=== PATIENT | female | born 1950 | race Caucasian/White ===

== ENCOUNTER 2022-09-05 12:14 | Emergency (ER) | payer MEDICARE, SELFPAY ==
[2022-09-05 12:17] VITALS: BP 162/90; PULSE 57; RESP 18; TEMP 37.7; O2SAT 98; BMI 30.5
--- NOTE | 2022-09-05 12:19 | ED_ITS ---
HPI - General Adult General Chief complaint: Extremity Problem, Nontraumatic Stated complaint: FACIAL PAIN Time Seen by Provider: 09/05/22 12:19 History of Present Illness HPI narrative: patient presents to the emergency department complaining of right facial swelling. Patient states she started having pain and swelling to the right jaw about a month ago. She saw her dentist and was told it was nothing wrong with it. She has been taking Motrin for the pain. She started noticing increased swelling this week saw Dr. Rivreo who started the patient on Augmentin. Patient states today there was more swelling than it was yesterday so she came in to be evaluated. She denies any fever, chills, cough, chest pain, shortness of breath. Denies any sore throat or difficulty swallowing. She denies any throat swelling. She denies any trauma. Related Data Home Medications Medication Instructions Recorded Confirmed amoxicillin 875 mg-potassium 1 tab PO Q12H 09/05/22 09/05/22 clavulanate 125 mg tablet fluoxetine 20 mg capsule 60 mg PO QDAY 09/05/22 09/05/22 lisinopril 40 mg tablet 40 mg PO QDAY 09/05/22 09/05/22 lovastatin 40 mg tablet 40 mg PO QDAY 09/05/22 09/05/22 Previous Rx's Medication Instructions Recorded clindamycin HCl 300 mg capsule 300 mg PO TID 10 days #30 caps 09/05/22 Allergies Allergy/AdvReac Type Severity Reaction Status Date / Time No Known Drug Allergies Allergy Verified 09/05/22 12:17 Review of Systems ROS Status of ROS 10 or more systems reviewed and unremarkable except as noted in history and below Exam Narrative Exam Narrative: Nurses notes and vital signs reviewed and patient is not hypoxic. General: Nontoxic, Well-appearing and in no apparent distress. Skin: Warm, dry, no pallor noted. No Rash Head: Normocephalic, atraumatic. Neck: Supple, non-tender. Eye: Pupils are equal, round and EOMI. No scleral icterus. Ears, Nose, Mouth, and Throat: TM clear, no posterior oropharynx erythema or nasal mucosal hypertrophy, uvula is mid-line Oral mucosa is moist, No trismus, no drooling, there is a 2 x 2 centimeter fullness to the right mandibular angle. There is no erythema, ecchymosis, trauma there is no drainable abscess. There is no tongue elevation. Cardiovascular: Regular Rate and Rhythm without murmur, gallop or rub. Respiratory: No accessory muscle use or respiratory distress. Lungs are clear to auscultation, no wheezing, rales or rhonchi Chest Wall: no tenderness Back: No midline thoracic or lumbar vertebral tenderness. No CVA tenderness Musculoskeletal: normal ROM, no calf or popliteal tenderness, no lower extremity edema/swelling GI: Abdomen is soft, non-distended. Normal bowel sounds. No masses appreciated. No tenderness to palpation. No rebound, guarding, or rigidity noted. Neurological: A&O x4. No cranial nerve dysfunction observed. No truncal ataxia. Moves all extremities. Sensation intact. Psychiatric: Cooperative and interactive. Normal mood and affect. Constitutional Vital Signs - 24 hr 09/05/22 12:17 Temperature 99.8 F H Pulse Rate [Monitor] 57 L Respiratory Rate 18 Blood Pressure [Right Arm] 162/90 H Pulse Oximetry 98 Oxygen Delivery Method Room Air Course Vital Signs Vital signs: Vital Signs Temperature 99.8 F H 09/05/22 12:17 Pulse Rate 57 L 09/05/22 12:17 Respiratory Rate 18 09/05/22 12:17 Blood Pressure 162/90 H 09/05/22 12:17 Pulse Oximetry 98 09/05/22 12:17 Oxygen Delivery Method Room Air 09/05/22 12:17 Temperature 99.8 F H 09/05/22 12:17 Pulse Rate 57 L 09/05/22 12:17 Respiratory Rate 18 09/05/22 12:17 Blood Pressure 162/90 H 09/05/22 12:17 Pulse Oximetry 98 09/05/22 12:17 Oxygen Delivery Method Room Air 09/05/22 12:17 Medical Decision Making MDM Narrative Medical decision making narrative: IV was established. A shunt states she did not want anything stronger than Motrin to take at home for pain. CT of the neck soft tissue was ordered and shows a 2 cm abscess. There is no osteomyelitis. Patient was given clindamycin 900 mg IV. Started on clindamycin 300 mg 3 times a day for 10 days. She is to follow up with primary care doctor and a dentist. At this time the patient is without objective evidence of an acute process requiring hospitalization or inpatient management. The patient has remained hemodynamically stable. No additional indication for emergent studies at this time. I answered all questions. Discussed discharge instructions including standard anticipatory guidance and what should prompt a return to the emergency department, including if they get worse are not getting better or develops any new or concerning symptoms. I've given them specific time frame in which to follow-up, and who to follow-up with. The patient demonstrates understanding. Patient is nontoxic and stable for discharge with outpatient follow-up. This note was created with the assistance of a speech recognition program. Although the intention is to generate documents that actually reflects the content of the visit, no guarantees can be provided that every mistake has been identified and corrected by editing. Lab Data Lab results reviewed: Yes I reviewed the patient's lab results Labs: Lab Results 09/05/22 Range/Units 13:04 WBC 10.2 (4.0-11.0) 10^3/uL RBC 4.52 (4.20-5.40) 10^6/uL Hgb 13.8 (12.0-16.0) g/dL Hct 42.7 (36.0-48.0) % MCV 94.5 (81.0-99.0) fL MCH 30.5 (26.7-34.0) pg MCHC 32.3 (29.9-35.2) g/dL RDW 12.3 (11.0-15.0) % Plt Count 232 (150-450) 10^3/uL MPV 9.5 (9.5-13.5) fL Neut % (Auto) 60.6 (43.0-75.0) % Lymph % (Auto) 25.4 (20.5-60.0) % [place] % (Auto) 12.2 H (1.7-12.0) % Eos % (Auto) 0.9 (0.9-7.0) % Baso % (Auto) 0.4 (0.2-2.0) % Neut # (Auto) 6.2 (1.4-6.5) 10^3/uL Lymph # (Auto) 2.6 (1.2-3.8) 10^3/uL [place] # (Auto) 1.3 H (0.3-0.8) 10^3/uL Eos # (Auto) 0.1 (0.0-0.7) 10^3/uL Baso # (Auto) 0.0 (0.0-0.1) 10^3/uL Abs Immat Gran (auto) 0.05 H (0.00-0.03) 10^3/uL Imm/Tot Granulo (auto) 0.5 (0.0-0.5) % Sodium 139 (136-145) mmol/L Potassium 3.8 (3.5-5.1) mmol/L Chloride 102 (98-107) mmol/L Carbon Dioxide 28.9 (21.0-32.0) mmol/L Anion Gap 11.9 BUN 14.0 (7.0-18.0) mg/dL Creatinine 0.69 (0.55-1.02) mg/dL Est GFR ( Amer) >60 (>=60) Est GFR (Non-Af Amer) >60 (>=60) BUN/Creatinine Ratio 20.3 Glucose 89 (74-106) mg/dL Calcium 9.4 (8.5-10.1) mg/dL Imaging Data CT scan: Radiologist's impression: [facility] [place] [address] Patient Name: ROHAN LUNA MRN: [facility]:[id number] date: 1950 Sex: F Assigned Patient Location: Current Patient Location: Accession/Order Number: [id number] Exam Date: 09/05/2022 13:58 Report Date: 09/05/2022 14:32 At the request of: PATY TUCKER Procedure: CT soft tissue neck w con EXAMINATION: CT soft tissue neck w con HISTORY: swelling r mandible ; acute right facial swelling COMPARISON: No relevant comparison available. TECHNIQUE: Axial, Coronal, and Sagittal CT images created with IV contrast. Dose reduction techniques were achieved by using automated exposure control and/or adjustment of mA and/or kV according to patient size and/or use of iterative reconstruction technique. FINDINGS: NASOPHARYNX: No asymmetry of the fossae of Rosenmuller and torus tubarius. ORAL CAVITY: Encapsulated fluid collection containing small amount of air inferior medial to the right mandible midway between chain and angle of mandible, 2.2 x 2.1 x 1.0 cm. No appreciable cortical destruction of the adjacent mandible. OROPHARYNX: No asymmetry of the facial and lingual tonsils. HYPOPHARYNX: No mass or other visible lesion. LARYNX: No mass or asymmetry of the vocal cords. SINUSES: No significant fluid or mucosal thickening. NECK GLANDS: No visible abnormality of the parotid, submandibular, and thyroid glands. LYMPH NODES: Several slightly prominent level 1 and level 2 lymph nodes on right. VASCULATURE: No suspicious abnormality. BONES: Degenerative changes of cervical spine. OTHER: No additional imaging findings. IMPRESSION: 1. There is a 2.2 cm abscess adjacent the inferior medial margin of the mid right mandible. No adjacent bone destruction. 2. Mild lymphadenopathy. Electronically authenticated by: GAVIN MULLIGAN Date: 09/05/2022 14:32 Discharge Plan Discharge Chief Complaint: Extremity Problem, Nontraumatic Clinical Impression: Cutaneous abscess of face Patient Disposition: Home, Self-Care Time of Disposition Decision: 16:06 Mode of Transportation: Private Vehicle Prescriptions / Home Meds: New clindamycin HCl 300 mg capsule 300 mg PO TID 10 Days Qty: 30 0RF No Action amoxicillin-pot clavulanate 875-125 mg tablet 1 tab PO Q12H fluoxetine 20 mg capsule 60 mg PO QDAY lisinopril 40 mg tablet 40 mg PO QDAY lovastatin 40 mg tablet 40 mg PO QDAY Instructions: Dental Abscess (ED) Stand Alone Forms: Portal Instructions Referrals: ANNABELLA URBANO [Primary Care Provider] - 1 week
--- NOTE | 2022-09-05 12:51 | CT_ITS ---
[address] [address] Patient Name: ROHAN LUNA MRN: [id number] date: 1950 Sex: F Assigned Patient Location: ER Current Patient Location: Accession/Order Number: [id number] Exam Date: 09/05/2022 13:58 Report Date: 09/05/2022 14:32 At the request of: PATY TUCKER Procedure: CT soft tissue neck w con EXAMINATION: CT soft tissue neck w con HISTORY: swelling r mandible ; acute right facial swelling COMPARISON: No relevant comparison available. TECHNIQUE: Axial, Coronal, and Sagittal CT images created with IV contrast. Dose reduction techniques were achieved by using automated exposure control and/or adjustment of mA and/or kV according to patient size and/or use of iterative reconstruction technique. FINDINGS: NASOPHARYNX: No asymmetry of the fossae of Rosenmuller and torus tubarius. ORAL CAVITY: Encapsulated fluid collection containing small amount of air inferior medial to the right mandible midway between chain and angle of mandible, 2.2 x 2.1 x 1.0 cm. No appreciable cortical destruction of the adjacent mandible. OROPHARYNX: No asymmetry of the facial and lingual tonsils. HYPOPHARYNX: No mass or other visible lesion. LARYNX: No mass or asymmetry of the vocal cords. SINUSES: No significant fluid or mucosal thickening. NECK GLANDS: No visible abnormality of the parotid, submandibular, and thyroid glands. LYMPH NODES: Several slightly prominent level 1 and level 2 lymph nodes on right. VASCULATURE: No suspicious abnormality. BONES: Degenerative changes of cervical spine. OTHER: No additional imaging findings. IMPRESSION: 1. There is a 2.2 cm abscess adjacent the inferior medial margin of the mid right mandible. No adjacent bone destruction. 2. Mild lymphadenopathy. Electronically authenticated by: GAVIN MULLIGAN Date: 09/05/2022 14:32
[2022-09-05 13:15] LABS: Basophils Percent Auto 0.4 % (0.2-2.0); Eosinophils Absolute Auto 0.1 10^3/uL (0.0-0.7); Eosinophils Percent Auto 0.9 % (0.9-7.0); Hematocrit 42.7 % (36.0-48.0); Hemoglobin 13.8 g/dL (12.0-16.0); Immature Granulocytes Abs Auto 0.05 10^3/uL (0.00-0.03); Immature Granulocytes Pct Auto 0.5 % (0.0-0.5); Lymphocytes Absolute Auto 2.6 10^3/uL (1.2-3.8); Lymphocytes Percent Auto 25.4 % (20.5-60.0); Mean Corpuscular HGB Conc 32.3 g/dL (29.9-35.2); Mean Corpuscular Hemoglobin 30.5 pg (26.7-34.0); Mean Corpuscular Volume 94.5 fL (81.0-99.0); Mean Platelet Volume 9.5 fL (9.5-13.5); Monocytes Absolute Auto 1.3 10^3/uL (0.3-0.8); Monocytes Percent Auto 12.2 % (1.7-12.0); Neutrophils Absolute Auto 6.2 10^3/uL (1.4-6.5); Neutrophils Percent Auto 60.6 % (43.0-75.0); Platelet Count 232 10^3/uL (150-450); Red Blood Count 4.52 10^6/uL (4.20-5.40); Red Cell Distribution Width 12.3 % (11.0-15.0); White Blood Count 10.2 10^3/uL (4.0-11.0)
[2022-09-05 13:47] LABS: Anion Gap 11.9; Carbon Dioxide 28.9 mmol/L (21.0-32.0); Chloride 102 mmol/L (98-107); Potassium 3.8 mmol/L (3.5-5.1); Sodium 139 mmol/L (136-145)
[2022-09-05 13:48] LABS: BUN Creatinine Ratio 20.3; Estimated GFR (African America >60 (>=60); Estimated GFR (Non-African Ame >60 (>=60); Glucose 89 mg/dL (74-106)
[2022-09-05 13:49] LABS: Calcium 9.4 mg/dL (8.5-10.1)
[2022-09-05] MEDS: CLINDAMYCIN PHOSPHATE/D5W 900 MG/50 ML PIGGYBACK 100 MG IV (16:12)
== END 2022-09-05 16:48 | disposition home or self-care (01) ==
PROVIDERS: Emergency Provider Emergency Medicine; PCP Family Medicine
DX: Z79.899 Other long term (current) drug therapy (principal); L02.01 Cutaneous abscess of face
CPT/HCPCS: 36415; 70491; 80048; 85025; 96365; 99285; Q9967

== ENCOUNTER 2023-07-05 12:20 | Emergency (ER) | payer MEDICARE, SELFPAY ==
[2023-07-05] VITALS (18 sets, daily range): BP systolic 165–189; BP diastolic 53–88; PULSE 50–72; TEMP 36.8; O2SAT 86–100; BMI 33.6
--- NOTE | 2023-07-05 12:34 | ED.GENADUL1 ---
HPI HPI - General Adult General Chief complaint: Chest Pain Stated complaint: CHEST PAIN Time Seen by Provider: 07/05/23 12:34 Source: patient Mode of arrival: walk-in History of Present Illness HPI narrative: Patient is a 73-year-old female who is presenting to the Emergency Room with chief complaint of 3-4 week history of intermittent midsternal chest pain. Patient relates her pain to ankylosing spondylitis. Patient has never had a stress test or echocardiogram. Patient's PCP is Dr. King. Patient has spoken to Dr. King several times about outpatient cardiac testing but has not followed through. Patient has no abdominal pain, nausea or vomiting. Patient is also having intermittent back spasms that are acute on chronic secondary to ankylosing spondylitis. No recent traveling. Patient has history of hypertension and cholesterol. Patient is a nonsmoker. Patient has no other acute complaints at this time. All systems are negative except as noted/marked. All systems reviewed and otherwise negative. Nurses note and vital signs reviewed and patient is not hypoxic. General: The patient appears well and in no apparent distress. Patient is resting comfortably on cart. Patient is not toxic, lethargic, or listless Skin: Warm, dry, no pallor noted. There is no rash noted. No petechiae, purpura. Head: Normocephalic, atraumatic Eye: Normal conjunctiva, no drainage, EOMI. PERRL Ears, Nose, Mouth, and Throat: oral mucosa is moist. Nares patent. Mouth without vesicles. Cardiovascular: Regular Rate and Rhythm, no murmur, gallop, rub; No reproducible tenderness to palpation. Respiratory: Patient is in no distress, no accessory muscle use, lungs are clear to auscultation, no wheezing, rales or rhonchi Back: non-tender, no CVA tenderness bilaterally to percussion. No CT LS midline pain GI: Obese,no tenderness to palpation, no masses appreciated. No rebound, guarding, or rigidity noted. No distention Musculoskeletal: Patient has full range of motion of all of the extremities, no motor, sensory, or focal neurological deficits Neurological: A&O x4, normal speech Psychiatric: Cooperative Related Data Home Medications ?Medication ?Instructions ?Recorded ?Confirmed amoxicillin 875 mg-potassium 1 tab PO Q12H 09/05/22 09/05/22 clavulanate 125 mg tablet fluoxetine 20 mg capsule 60 mg PO QDAY 09/05/22 09/05/22 lisinopril 40 mg tablet 40 mg PO QDAY 09/05/22 09/05/22 lovastatin 40 mg tablet 40 mg PO QDAY 09/05/22 09/05/22 Previous Rx's ?Medication ?Instructions ?Recorded clindamycin HCl 300 mg capsule 300 mg PO TID 10 days #30 caps 09/05/22 Allergies Allergy/AdvReac Type Severity Reaction Status Date / Time No Known Drug Allergies Allergy Verified 09/05/22 12:17 Opioid HPI Opioid Management Most Recent Opioid Data: Last Pain Scale 9 09/05/22 12:31 Exam Constitutional Vital Signs, click to edit/add: Last Vital Signs Temp 98.2 F 07/05/23 12:22 Pulse 50 L 07/05/23 13:52 Resp 18 07/05/23 12:22 BP 181/64 H 07/05/23 15:18 Pulse Ox 96 07/05/23 15:18 O2 Del Method Room Air 07/05/23 12:22 Course Vital Signs Vital signs: Vital Signs Temperature 98.2 F 07/05/23 12:22 Pulse Rate 60 07/05/23 12:22 Respiratory Rate 18 07/05/23 12:22 Blood Pressure 182/76 H 07/05/23 12:22 Pulse Oximetry 98 07/05/23 12:22 Oxygen Delivery Method Room Air 07/05/23 12:22 Temperature 98.2 F 07/05/23 12:22 Pulse Rate 50 L 07/05/23 13:52 Respiratory Rate 18 07/05/23 12:22 Blood Pressure 181/64 H 07/05/23 15:18 Pulse Oximetry 96 07/05/23 15:18 Oxygen Delivery Method Room Air 07/05/23 12:22 Medical Decision Making MDM Narrative Medical decision making narrative: Patient EKG, chest x-ray, lab versus no acute findings. Patient understands importance of following up with a Additional outpatient cardiac testing. Patient states that over pain is secondary to ankle I's and spondylitis. Patient was explained risk factors and heart score. Patient understands will follow-up with PCP next week. No questions at discharge. Lab Data Lab results reviewed: Yes I reviewed the patient's lab results Labs: Lab Results 07/05/23 Range/Units 12:33 WBC 8.5 (4.0-11.0) 10^3/uL RBC 4.23 (4.20-5.40) 10^6/uL Hgb 12.9 (12.0-16.0) g/dL Hct 39.4 (36.0-48.0) % MCV 93.1 (81.0-99.0) fL MCH 30.5 (26.7-34.0) pg MCHC 32.7 (29.9-35.2) g/dL RDW 12.2 (11.0-15.0) % Plt Count 215 (150-450) 10^3/uL MPV 9.6 (9.5-13.5) fL Neut % (Auto) 55.2 (43.0-75.0) % Lymph % (Auto) 33.1 (20.5-60.0) % [place] % (Auto) 8.6 (1.7-12.0) % Eos % (Auto) 2.2 (0.9-7.0) % Baso % (Auto) 0.7 (0.2-2.0) % Neut # (Auto) 4.7 (1.4-6.5) 10^3/uL Lymph # (Auto) 2.8 (1.2-3.8) 10^3/uL [place] # (Auto) 0.7 (0.3-0.8) 10^3/uL Eos # (Auto) 0.2 (0.0-0.7) 10^3/uL Baso # (Auto) 0.1 (0.0-0.1) 10^3/uL Abs Immat Gran (auto) 0.02 (0.00-0.03) 10^3/uL Imm/Tot Granulo (auto) 0.2 (0.0-0.5) % Sodium 136 (136-145) mmol/L Potassium 4.0 (3.5-5.1) mmol/L Chloride 101 (98-107) mmol/L Carbon Dioxide 26.9 (21.0-32.0) mmol/L Anion Gap 12.1 BUN 13.0 (7.0-18.0) mg/dL Creatinine 0.71 (0.55-1.02) mg/dL Est GFR ( Amer) >60 (>=60) Est GFR (Non-Af Amer) >60 (>=60) BUN/Creatinine Ratio 18.3 Glucose 93 (74-106) mg/dL Calcium 9.1 (8.5-10.1) mg/dL Total Bilirubin 0.3 (0.2-1.0) mg/dL AST 17 (15-37) U/L ALT 26 (14-59) U/L Alkaline Phosphatase 103 (46-116) U/L Troponin I High Sens 7.1 (4.0-51.3) pg/mL Total Protein 6.6 (6.4-8.2) g/dL Albumin 3.6 (3.4-5.0) g/dL Globulin 3.0 g/dL Albumin/Globulin Ratio 1.[address] scan - chest: Radiologist's impression: ITS Impressions Chest X-Ray 07/05/23 13:07 IMPRESSION: 1. No acute cardiopulmonary process. Stable chest. Electronically authenticated by: GAVIN MULLIGAN Date: 07/05/2023 13:39 ECG Data Attestation: I personally reviewed and interpreted this ECG as follows: (EKG interpretation. Normal sinus rhythm at 57 beats a minute. Left axis deviation. No acute ST elevation, no acute ectopy. QTc 427) Discharge Plan Discharge Stand Alone Forms: Portal Instructions Chief Complaint: Chest Pain Clinical Impression: Chest pain Patient Disposition: Home, Self-Care Condition: Fair Prescriptions / Home Meds: No Action amoxicillin-pot clavulanate 875-125 mg tablet 1 tab PO Q12H fluoxetine 20 mg capsule 60 mg PO QDAY lisinopril 40 mg tablet 40 mg PO QDAY lovastatin 40 mg tablet 40 mg PO QDAY clindamycin HCl 300 mg capsule 300 mg PO TID 10 Days Qty: 30 0RF Print Language: Citizen Of [place] Instructions: Chest Pain (ED) Additional Instructions: Call back to your PCP to Dr King to have outpatient stress test, echocardiogram, and additional testing done as needed and indicated. Referrals: ANNABELLA KING [Primary Care Provider] - 1 week Discharge Date/Time: 07/05/23 15:22
--- NOTE | 2023-07-05 12:50 | ECG_ITS ---
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
[2023-07-05 12:59] LABS: Basophils Absolute Auto 0.1 10^3/uL (0.0-0.1); Basophils Percent Auto 0.7 % (0.2-2.0); Eosinophils Absolute Auto 0.2 10^3/uL (0.0-0.7); Eosinophils Percent Auto 2.2 % (0.9-7.0); Hematocrit 39.4 % (36.0-48.0); Hemoglobin 12.9 g/dL (12.0-16.0); Immature Granulocytes Abs Auto 0.02 10^3/uL (0.00-0.03); Immature Granulocytes Pct Auto 0.2 % (0.0-0.5); Lymphocytes Absolute Auto 2.8 10^3/uL (1.2-3.8); Lymphocytes Percent Auto 33.1 % (20.5-60.0); Mean Corpuscular HGB Conc 32.7 g/dL (29.9-35.2); Mean Corpuscular Hemoglobin 30.5 pg (26.7-34.0); Mean Corpuscular Volume 93.1 fL (81.0-99.0); Mean Platelet Volume 9.6 fL (9.5-13.5); Monocytes Absolute Auto 0.7 10^3/uL (0.3-0.8); Monocytes Percent Auto 8.6 % (1.7-12.0); Neutrophils Absolute Auto 4.7 10^3/uL (1.4-6.5); Neutrophils Percent Auto 55.2 % (43.0-75.0); Platelet Count 215 10^3/uL (150-450); Red Blood Count 4.23 10^6/uL (4.20-5.40); Red Cell Distribution Width 12.2 % (11.0-15.0); White Blood Count 8.5 10^3/uL (4.0-11.0)
--- NOTE | 2023-07-05 13:07 | XR_ITS ---
The [address] [address] Patient Name: ROHAN LUNA MRN: [id number] date: 1950 Sex: F Assigned Patient Location: ER Current Patient Location: ER Accession/Order Number: [id number] Exam Date: 07/05/2023 13:00 Report Date: 07/05/2023 13:39 At the request of: SUSSY ENRIQUEZ Procedure: XR chest 1V EXAMINATION: XR chest 1V HISTORY: chest pain COMPARISON: XR chest 04/23/2021 FINDINGS: LUNGS: Stable small dense nodule within right midlung favoring a calcified granuloma. No acute infiltrates. VASCULATURE: No increased pulmonary vasculature. PLEURA: No pneumothorax, effusion, or pleural thickening. CARDIAC: No cardiomegaly or cardiac silhouette abnormality. MEDIASTINUM: No visible mass or adenopathy. BONES: Prior left rotator cuff repair. OTHER: Negative. XR/XR chest 1V IMPRESSION: 1. No acute cardiopulmonary process. Stable chest. Electronically authenticated by: GAVIN MULLIGAN Date: 07/05/2023 13:39
[2023-07-05 13:10] LABS: Alanine Aminotransferase 26 U/L (14-59); Albumin Globulin Ratio 1.2; Albumin Level 3.6 g/dL (3.4-5.0); Alkaline Phosphatase 103 U/L (46-116); Anion Gap 12.1; Aspartate Amino Transferase 17 U/L (15-37); BUN Creatinine Ratio 18.3; Bilirubin Total 0.3 mg/dL (0.2-1.0); Calcium 9.1 mg/dL (8.5-10.1); Carbon Dioxide 26.9 mmol/L (21.0-32.0); Chloride 101 mmol/L (98-107); Estimated GFR (African America >60 (>=60); Estimated GFR (Non-African Ame >60 (>=60); Glucose 93 mg/dL (74-106); Sodium 136 mmol/L (136-145); Total Protein 6.6 g/dL (6.4-8.2)
[2023-07-05 13:12] LABS: Troponin I High Sensitivity 7.1 pg/mL (4.0-51.3)
== END 2023-07-05 15:22 | disposition home or self-care (01) ==
PROVIDERS: Emergency Provider Emergency Medicine; PCP Family Medicine
DX: R07.9 Chest pain, unspecified (principal); I10 Essential (primary) hypertension; E78.00 Pure hypercholesterolemia, unspecified; M45.9 Ankylosing spondylitis of unspecified sites in spine; Z79.899 Other long term (current) drug therapy
CPT/HCPCS: 36415; 71045; 80053; 84484; 85025; 93005; 99285

== ENCOUNTER 2023-12-22 15:25 | Emergency (ER) | payer MEDICARE, SELFPAY ==
[2023-12-22 15:32] VITALS: BP 159/68; PULSE 96; TEMP 36.9; O2SAT 99; BMI 33.7
--- NOTE | 2023-12-22 15:41 | CT_ITS ---
The [address] [address] Patient Name: ROHAN LUNA MRN: [id number] date: 1950 Sex: F Assigned Patient Location: ER Current Patient Location: Accession/Order Number: [id number] Exam Date: 12/22/2023 16:52 Report Date: 12/22/2023 17:31 At the request of: ELENA IGLESIAS Procedure: CT abdomen pelvis w con EXAM: CT abdomen pelvis w con HISTORY: right lower quadrant pain, with radiation to back COMPARISON: None. TECHNIQUE: Axial CT imaging was performed through the abdomen and pelvis with intravenous contrast. Multiplanar reformats were performed. Dose reduction techniques were achieved by using automated exposure control and/or adjustment of mA and/or kV according to patient size and/or use of iterative reconstruction technique. FINDINGS: Lung bases: Lung bases are clear. No pleural effusion. GI upper: Small hiatal hernia. Liver: Normal size and contour. Gallbladder: No significant abnormality. No cholelithiasis. Biliary system: No intra or extrahepatic biliary ductal dilatation. Spleen: Normal size. Pancreas: Unremarkable. Adrenal glands: Normal adrenal glands. Kidneys/ureters: Normal contours. No hydronephrosis. No nephrolithiasis or ureterolithiasis. Vessels: No aneurysm. Lymph Nodes: No lymphadenopathy. Small bowel: No wall thickening or dilatation. Colon: No wall thickening or dilatation. Sigmoid diverticulosis without evidence of acute diverticulitis. Appendix: No findings of appendicitis. Peritoneal cavity: No free fluid or pneumoperitoneum. Lower : Unremarkable. Bones: No acute bony abnormality. Soft tissues: No acute finding. Additional findings: None. CT/CT abdomen pelvis w con IMPRESSION: No acute abnormality. Electronically authenticated by: FLORINA ZULETA Date: 12/22/2023 17:31
[2023-12-22] MEDS: 0.9 % SODIUM CHLORIDE 1,000 ML 100 ML IV (16:01)
--- NOTE | 2023-12-22 16:03 | ECG_ITS ---
The [facility] Test Date: 2023-12-22 Pat Name: ROHAN LUNA Department: Room: - Gender: Female Archivist: : 1950 Requested By: ANNABELLA URBANO Order Number: [id number] Reading MD: NATHALIE HALL Measurements Intervals [place] Rate: 56 P: 43 AR: 136 QRS: -27 QRSD: 90 T: 26 QT: 448 QTc: 439 Interpretive Statements 1100 Sinus rhythm 2420 RSR (QR) in lead V1/V2, consistent with right ventricular conduction delay 7202 Moderate left axis deviation 9130 borderline ECG Compared to ECG 07/05/2023 12:27:30 T-wave abnormality no longer present Electronically Signed On 12-22-2023 20:28:12 EDT by NATHALIE HALL
[2023-12-22 16:07] LABS: Bilirubin Urine NEGATIVE (NEGATIVE); Blood Urine TRACE-I (NEGATIVE); Clarity Urine CLEAR (CLEAR); Color Urine LT. YELLOW (YELLOW); Glucose Urine UA NEGATIVE (NEGATIVE); Ketones Urine NEGATIVE (NEGATIVE); Leukocyte Esterase Urine SMALL (NEGATIVE); Nitrite Urine NEGATIVE (NEGATIVE); Protein Urine NEGATIVE (NEG/TRACE); Urobilinogen Urine 0.2 EU/dL (0.2-1.0); pH Urine 6.5 (5.0-9.0)
[2023-12-22 16:07] LABS: Basophils Absolute Auto 0.1 10^3/uL (0.0-0.1); Basophils Percent Auto 0.6 % (0.2-2.0); Eosinophils Absolute Auto 0.2 10^3/uL (0.0-0.7); Eosinophils Percent Auto 1.4 % (0.9-7.0); Hematocrit 41.6 % (36.0-48.0); Hemoglobin 14.4 g/dL (12.0-16.0); Immature Granulocytes Abs Auto 0.04 10^3/uL (0.00-0.03); Immature Granulocytes Pct Auto 0.4 % (0.0-0.5); Lymphocytes Absolute Auto 2.9 10^3/uL (1.2-3.8); Lymphocytes Percent Auto 26.8 % (20.5-60.0); Mean Corpuscular HGB Conc 34.6 g/dL (29.9-35.2); Mean Corpuscular Hemoglobin 31.2 pg (26.7-34.0); Mean Platelet Volume 9.5 fL (9.5-13.5); Monocytes Absolute Auto 0.9 10^3/uL (0.3-0.8); Monocytes Percent Auto 8.2 % (1.7-12.0); Neutrophils Absolute Auto 6.8 10^3/uL (1.4-6.5); Neutrophils Percent Auto 62.6 % (43.0-75.0); Platelet Count 268 10^3/uL (150-450); Red Blood Count 4.62 10^6/uL (4.20-5.40); White Blood Count 10.9 10^3/uL (4.0-11.0)
[2023-12-22 16:09] LABS: Urine Microscopic Indicated YES
[2023-12-22 16:17] LABS: Bacteria Urine SMALL #/HPF (NONE SEEN); Cast Seen? NONE SEEN #/LPF (NONE SEEN); Crystals Seen? None Seen #/HPF (None Seen); Mucus Urine NONE SEEN (NONE SEEN); Squamous Epithelial Cell Urine MODERATE #/LPF (NONE/RARE)
[2023-12-22 16:18] LABS: Urine Culture Indicated YES
[2023-12-22 16:23] LABS: Lactate/Lactic Acid 1.6 mmol/L (0.4-2.0)
[2023-12-22 16:25] LABS: Alanine Aminotransferase 32 U/L (14-59); Albumin Globulin Ratio 1.2; Albumin Level 3.7 g/dL (3.4-5.0); Alkaline Phosphatase 105 U/L (46-116); Aspartate Amino Transferase 18 U/L (15-37); BUN Creatinine Ratio 21.1; Bilirubin Total 0.7 mg/dL (0.2-1.0); Calcium 9.2 mg/dL (8.5-10.1); Carbon Dioxide 29.2 mmol/L (21.0-32.0); Estimated GFR (African America >60 (>=60); Estimated GFR (Non-African Ame >60 (>=60); Globulin 3.2 g/dL; Glucose 87 mg/dL (74-106); Total Protein 6.9 g/dL (6.4-8.2); Troponin I High Sensitivity 6.1 pg/mL (4.0-51.3)
[2023-12-22] MEDS: KETOROLAC TROMETHAMINE 30 MG/ML VIAL 15 MG IVP (16:25)
[2023-12-22] MEDS: ONDANSETRON PF 4 MG/2 ML VIAL IV (16:25)
[2023-12-22 16:31] LABS: Anion Gap 6.7; Chloride 98 mmol/L (98-107); Potassium 3.9 mmol/L (3.5-5.1); Sodium 130 mmol/L (136-145)
--- NOTE | 2023-12-22 18:06 | ED.GENADUL1 ---
HPI HPI - General Adult General Chief complaint: Abdominal Pain Stated complaint: Abdominal Pain Time Seen by Provider: 12/22/23 15:30 Source: patient Mode of arrival: walk-in Limitations: no limitations History of Present Illness HPI narrative: 73-year-old female presents emergency room chief complaint of a 4-day history of lower abdominal pain and some pain in her lower back area. Patient denies any known injury or trauma. Patient states the pain is worse with movement. She denies any fevers chills nausea or vomiting. She has diffuse lower quadrant abdominal tenderness on exam. She denies any diarrhea or constipation. She states she is generally healthy. Has a history of kidney stones. She denies a history of burning with urination or dysuria. Related Data Home Medications ?Medication ?Instructions ?Recorded ?Confirmed amoxicillin 875 mg-potassium 1 tab PO Q12H 09/05/22 09/05/22 clavulanate 125 mg tablet fluoxetine 20 mg capsule 60 mg PO QDAY 09/05/22 12/22/23 lisinopril 40 mg tablet 40 mg PO QDAY 09/05/22 12/22/23 lovastatin 40 mg tablet 40 mg PO QDAY 09/05/22 12/22/23 methylphenidate HCl 10 mg tablet 10 mg PO DAILY 12/22/23 12/22/23 (Ritalin) methylphenidate HCl 10 mg tablet 10 mg PO DAILY 12/22/23 12/22/23 (Ritalin) Previous Rx's ?Medication ?Instructions ?Recorded clindamycin HCl 300 mg capsule 300 mg PO TID 10 days #30 caps 09/05/22 cephalexin 500 mg capsule 500 mg PO TID 7 days #21 caps 12/22/23 fluconazole 100 mg tablet 100 mg PO QWEEK #2 tabs 12/22/23 (Diflucan) methocarbamol 500 mg tablet 500 mg PO TID PRN pain #10 tabs 12/22/23 Allergies Allergy/AdvReac Type Severity Reaction Status Date / Time No Known Drug Allergies Allergy Verified 09/05/22 12:17 Opioid HPI Opioid Management Most Recent Opioid Data: Last Pain Scale 9 09/05/22 12:31 Review of Systems ROS Narrative All Systems are negative except as noted/marked.All systems reviewed and otherwise negative Status of ROS 10 or more systems reviewed and unremarkable except as noted in history and below PFSH PFSH Social History Little interest or pleasure in doing things: more than half the days Feeling down, depressed, or hopeless: not at all Exam Narrative Exam Narrative: Nurses note and vital signs reviewed and patient is not hypoxic. General: The patient appears well and in no apparent distress. Patient is resting comfortably on cart. Skin: Warm, dry, no pallor noted. There is no rash noted. Head: Normocephalic, atraumatic Eye: Normal conjunctiva, no drainage, EOMI. PERRL Ears, Nose, Mouth, and Throat: oral mucosa is moist. Nares patent. Mouth without vesicles. Ear canals patent. Tm's without Erythema Cardiovascular: Regular Rate and Rhythm Respiratory: Patient is in no distress, no accessory muscle use, lungs are clear to auscultation, no wheezing, rales or rhonchi Back: non-tender, no CVA tenderness bilaterally to percussion. GI: Normal bowel sounds, right lower abdominal pain, bowel sounds are active, no rebound or guarding Musculoskeletal: The patient has no evidence of calf tenderness, no pitting edema, symmetrical pulses noted bilaterally Neurological: A&O x4, normal speech Psychiatric: Cooperative Constitutional Vital Signs, click to edit/add: Last Vital Signs Temp 98.4 F 12/22/23 15:32 Pulse 96 H 12/22/23 15:32 Resp 16 12/22/23 15:32 BP 159/68 H 12/22/23 15:32 Pulse Ox 99 12/22/23 15:32 Course Vital Signs Vital signs: Vital Signs Temperature 98.4 F 12/22/23 15:32 Pulse Rate 96 H 12/22/23 15:32 Respiratory Rate 16 12/22/23 15:32 Blood Pressure 159/68 H 12/22/23 15:32 Pulse Oximetry 99 12/22/23 15:32 Temperature 98.4 F 12/22/23 15:32 Pulse Rate 96 H 12/22/23 15:32 Respiratory Rate 16 12/22/23 15:32 Blood Pressure 159/68 H 12/22/23 15:32 Pulse Oximetry 99 12/22/23 15:32 Medical Decision Making [facility] Narrative Medical decision making narrative: 73-year-old female presents emergency room chief complaint of a 4-day history of lower abdominal pain and some pain in her lower back area. Patient denies any known injury or trauma. Patient states the pain is worse with movement. She denies any fevers chills nausea or vomiting. She has diffuse lower quadrant abdominal tenderness on exam. She denies any diarrhea or constipation. She states she is generally healthy. Has a history of kidney stones. She denies a history of burning with urination or dysuria. Arrival to the emergency room patient was able to walk and ambulate into the room. IV was established and blood work was obtained. CBC and CMP were reviewed. Patient was slightly hyponatremic with a result of 130, BUN and creatinine within normal limits troponin is also negative. CT scan was obtained. Patient CT scan was read negative by radiology. Patient's urinalysis showed moderate amount of squamous cells and bacteria and yeast. Patient prophylactically treated with Keflex and given a prescription for Diflucan. Patient also be prescription for muscle relaxants as they believe some of her abdominal pain and back pain are due to a musculoskeletal strain. Patient will follow-up with Dr. King. Patient verbalized understanding agrees with plan of care. Differential Diagnosis Differential Diagnosis: Colic, appendicitis, constipation, gastroenteritis Medical Records Medical records reviewed: Yes I reviewed the patient's medical records Lab Data Lab results reviewed: Yes I reviewed the patient's lab results Labs: Lab Results 12/22/23 12/22/23 Range/Units 15:50 16:00 WBC 10.9 (4.0-11.0) 10^3/uL RBC 4.62 (4.20-5.40) 10^6/uL Hgb 14.4 (12.0-16.0) g/dL Hct 41.6 (36.0-48.0) % MCV 90.0 (81.0-99.0) fL MCH 31.2 (26.7-34.0) pg MCHC 34.6 (29.9-35.2) g/dL RDW 12.0 (11.0-15.0) % Plt Count 268 (150-450) 10^3/uL MPV 9.5 (9.5-13.5) fL Neut % (Auto) 62.6 (43.0-75.0) % Lymph % (Auto) 26.8 (20.5-60.0) % [place] % (Auto) 8.2 (1.7-12.0) % Eos % (Auto) 1.4 (0.9-7.0) % Baso % (Auto) 0.6 (0.2-2.0) % Neut # (Auto) 6.8 H (1.4-6.5) 10^3/uL Lymph # (Auto) 2.9 (1.2-3.8) 10^3/uL [place] # (Auto) 0.9 H (0.3-0.8) 10^3/uL Eos # (Auto) 0.2 (0.0-0.7) 10^3/uL Baso # (Auto) 0.1 (0.0-0.1) 10^3/uL Abs Immat Gran (auto) 0.04 H (0.00-0.03) 10^3/uL Imm/Tot Granulo (auto) 0.4 (0.0-0.5) % Sodium 130 L (136-145) mmol/L Potassium 3.9 (3.5-5.1) mmol/L Chloride 98 (98-107) mmol/L Carbon Dioxide 29.2 (21.0-32.0) mmol/L Anion Gap 6.7 BUN 15.0 (7.0-18.0) mg/dL Creatinine 0.71 (0.55-1.02) mg/dL Est GFR ( Amer) >60 (>=60) Est GFR (Non-Af Amer) >60 (>=60) BUN/Creatinine Ratio 21.1 Glucose 87 (74-106) mg/dL Lactate 1.6 (0.4-2.0) mmol/L Calcium 9.2 (8.5-10.1) mg/dL Total Bilirubin 0.7 (0.2-1.0) mg/dL AST 18 (15-37) U/L ALT 32 (14-59) U/L Alkaline Phosphatase 105 (46-116) U/L Troponin I High Sens 6.1 (4.0-51.3) pg/mL Total Protein 6.9 (6.4-8.2) g/dL Albumin 3.7 (3.4-5.0) g/dL Globulin 3.2 g/dL Albumin/Globulin Ratio 1.2 Lipase 37.0 (16.0-77.0) U/L Urine Color Lt. yellow (YELLOW) Urine Clarity Clear (CLEAR) Urine pH 6.5 (5.0-9.0) Ur Specific [place] 1.010 (1.005-1.025) Urine Protein Negative (NEG/TRACE) mg/dL Urine Glucose (UA) Negative (NEGATIVE) mg/dL Urine Ketones Negative (NEGATIVE) mg/dL Urine Occult Blood Trace-i (NEGATIVE) Urine Nitrite Negative (NEGATIVE) Urine Bilirubin Negative (NEGATIVE) Urine Urobilinogen 0.2 (0.2-1.0) EU/dL Ur Leukocyte Esterase Small A (NEGATIVE) Urine RBC 2-5 A (0-2) #/HPF Urine WBC 2-5 A (NONE SEEN) #/HPF Ur Squamous Epith Cells Moderate A (NONE/RARE) #/LPF Urine Crystals None seen (None Seen) #/HPF Urine Bacteria Small A (NONE SEEN) #/HPF Urine Casts None seen (NONE SEEN) #/LPF Urine Mucus None seen (NONE SEEN) Urine Yeast Seen A (NONE SEEN) Ur Culture Indicated? Yes Imaging Data CT scan - abdomen: Radiologist's impression: ITS Impressions Abdomen/Pelvis CT 12/22/23 15:41 IMPRESSION: No acute abnormality. Electronically authenticated by: FLORINA ZULETA Date: 12/22/2023 17:31 Discharge Plan Discharge Chief Complaint: Abdominal Pain Clinical Impression: Abdominal pain, Acute UTI (urinary tract infection), Vaginal yeast infection Patient Disposition: Home, Self-Care Time of Disposition Decision: 18:02 Condition: Good Prescriptions / Home Meds: New methocarbamol 500 mg tablet 500 mg PO TID PRN (Reason: pain) Qty: 10 0RF cephalexin 500 mg capsule 500 mg PO TID 7 Days Qty: 21 0RF fluconazole [Diflucan] 100 mg tablet 100 mg PO QWEEK Qty: 2 0RF No Action amoxicillin-pot clavulanate 875-125 mg tablet 1 tab PO Q12H fluoxetine 20 mg capsule 60 mg PO QDAY lisinopril 40 mg tablet 40 mg PO QDAY lovastatin 40 mg tablet 40 mg PO QDAY clindamycin HCl 300 mg capsule 300 mg PO TID 10 Days Qty: 30 0RF methylphenidate HCl [Ritalin] 10 mg tablet 10 mg PO DAILY Patient Comments: take 15 mg in AM methylphenidate HCl [Ritalin] 10 mg tablet 10 mg PO DAILY Print Language: Bruneian Instructions: Urinary Tract Infection in Women (ED), Yeast Infection (ED), Abdominal Pain (ED) Referrals: ANNABELLA KING [Primary Care Provider] - 12/23/23 (call office for follow up appointment)
== END 2023-12-22 18:17 | disposition home or self-care (01) ==
PROVIDERS: Physician Assistant; Emergency Provider Emergency Medicine; PCP Family Medicine
DX: N39.0 Urinary tract infection, site not specified (principal); R10.9 Unspecified abdominal pain; B37.31 Acute candidiasis of vulva and vagina; Z87.442 Personal history of urinary calculi
CPT/HCPCS: 36415; 74177; 80053; 81001; 83605; 83690; 84484; 85025; 87086; 93005; 96374; 96375; 99285; J1885; J2405; Q9967